=== PATIENT | male | born 1970 | race African-American/Black ===

== ENCOUNTER 2019-03-03 14:18 | Emergency (ER) | payer OTHER ==
--- NOTE | 2019-03-03 15:58 | ER Document Report ---
HPI - HPI Time Seen by Provider: 03/03/19 15:39 Pain Level: 4 Notes: 48-year-old male presents emergency room for evaluation of flulike symptoms, sore throat, nasal congestion, dry cough, body aches for the last 2 days. Patient did not get a flu shot this year. Worse with time, nothing makes better. He has tried TheraFlu without relief. Decreased eating but drinking without issues. Patient states he does have a history of hypertension, forgot to take his blood pressure medications today. denies chest pain,palpitations, shortness of breath, dyspnea, nausea, vomiting, diarrhea, abdominal pain, hematuria,blurred vision, double vision, loss of vision, speech changes, LH, dizziness, syncope, headaches, wheezing, , neck pain, weakness, bowel or bladder dysfunction, saddle anesthesia, numbness or tingling in bilateral upper or lower extremities equally, muscle paralysis, weakness in bilateral upper or lower extremities equally or rash. Past Medical History - General Information source: Patient - Social History Smoking Status: Never Smoker Frequency of alcohol use: None Drug Abuse: None Family History: Reviewed & Not Pertinent Patient has suicidal ideation: No Patient has homicidal ideation: No Vertical Provider Document - CONSTITUTIONAL Agree With Documented VS: Yes Exam Limitations: No Limitations General Appearance: WD/WN Notes: PHYSICAL EXAMINATION:reviewed vital signs by RN GENERAL: Well-appearing, well-nourished male in no acute distress. HEAD: Atraumatic, normocephalic. EYES: Pupils equal round and reactive to light, extraocular movements intact, sclera anicteric, conjunctiva are normal. Tears noted ENT: TM intact, noted effusion, no erythema bilaterally. Nares boggy bilaterally, oropharynx with erythema and without exudates. Moist mucous membranes. NECK: Normal range of motion, supple without lymphadenopathy LUNGS: Breath sounds clear to auscultation bilaterally and equal. No wheezes rales or rhonchi. No retractions HEART: Regular rate and rhythm without murmurs ABDOMEN: Soft, nontender, nondistended abdomen. No guarding, no rebound. No masses appreciated. Musculoskeletal: Normal range of motion, no pitting or edema. No cyanosis. NEUROLOGICAL: Cranial nerves grossly intact. Normal speech, normal gait exam for age. Normal sensory, motor, and reflex exams. PSYCH: Normal mood, normal affect. SKIN: Warm, Dry, normal turgor, no rashes or lesions noted Course - Re-evaluation Re-evalutation: 03/03/19 15:51 Afebrile slightly hypertensive though patient did not take his blood pressure medications today, asymptomatic, in no distress. Rapid flu, rapid strep Patient presents with cough, vomiting, diarrhea, and fever at home consistent with a diagnosis of influenza. Influenza testing is negative, but clinically appears to have flulike symptoms . patient is overall well in appearance, in no acute distress. Lung sounds clear. Able to tolerate oral intake without difficulty here in the emergency department. After risks and benefits conversat ion with the patient regarding the use of Tamiflu, they have elected to use supportive care without Tamiflu based on concerns about lack of efficacy as well as the side effect profile. At this time will discharge with return precautions and follow-up recommendations. Verbal discharge instructions given a the bedside and opportunity for questions given. Medication warnings reviewed. Patient is in agreement with this plan and has verbalized understanding of return precautions and the need for primary care follow-up in the next 24-72 hours. 03/03/19 17:58 - Vital Signs Vital signs: Temp Pulse Resp BP Pulse Ox 98.8 F 80 18 175/95 H 98 03/03/19 14:48 03/03/19 14:48 03/03/19 14:48 03/03/19 14:48 03/03/19 14:48 Discharge - Discharge Clinical Impression: Flu-like symptoms Condition: Stable Disposition: HOME, SELF-CARE Instructions: Acetaminophen, Influenza ([facility]) Additional Instructions: Take medication as prescribed. Increase oral hydration. Work note given. Wash hands frequently. Alternate between Tylenol and ibuprofen for fever and pain control. Return immediately for any new or worsening symptoms. Follow up with primary care provider, call tomorrow to make followup appointment. Prescriptions: Oseltamivir Phosphate [Tamiflu 75 mg Capsule] 75 mg PO BID #10 capsule Forms: Return to Work Referrals: HAN KING DO [NO LOCAL MD] - Follow up as needed
[2019-03-03 17:36] LABS: A TYPE INFLUENZA AG NEGATIVE (NEGATIVE); B INFLUENZA AG NEGATIVE (NEGATIVE)
[2019-03-03 18:22] VITALS: BP 158/94
== END 2019-03-03 18:22 | disposition home or self-care (01) ==
LOC: ER 14:18
DX: J02.9 Acute pharyngitis, unspecified (principal); R09.81 Nasal congestion; R05 Cough; M79.10 Myalgia, unspecified site; R11.10 Vomiting, unspecified
CPT/HCPCS: 87070; 87804; 87880; 99283

== ENCOUNTER 2019-09-08 21:03 | Emergency (ER) | payer OTHER ==
--- NOTE | 2019-09-08 21:27 | EKG REPORT ---
SEVERITY:- BORDERLINE ECG - SINUS RHYTHM BORDERLINE T ABNORMALITIES, INFERIOR LEADS : Confirmed by: Johnny Sue MD 08-Sep-2019 21:26:45
[2019-09-09 00:46] LABS: ABSOLUTE EOSINOPHILS # (AUTO) 0.3 10^3/uL (0.0-0.6); ABSOLUTE LYMPHOCYTES (AUTO) 1.3 10^3/uL (0.5-4.7); ABSOLUTE MONOCYTES (AUTO) 0.4 10^3/uL (0.1-1.4); ABSOLUTE NEUT (AUTO) 4.9 10^3/uL (1.7-8.2); BASOPHILS % (AUTO) 0.5 % (0-2); EOSINOPHILS % (AUTO) 3.9 % (0-6); HEMATOCRIT 44.4 % (37.9-51.0); LYMPHOCYTES % (AUTO) 18.1 % (13-45); MEAN CORPUSCULAR HEMOGLOBIN 30.6 pg (27.0-33.4); MEAN CORPUSCULAR HGB CONC 33.7 g/dL (32.0-36.0); MEAN CORPUSCULAR VOLUME 91 fl (80-97); MONOCYTES % (AUTO) 6.5 % (3-13); PLATELET COUNT 289 10^3/uL (150-450); TOTAL CELLS COUNTED % (AUTO) 100 %; WHITE BLOOD COUNT 6.9 10^3/uL (4.0-10.5)
[2019-09-09 01:03] LABS: ALBUMIN 4.7 g/dL (3.5-5.0); ALKALINE PHOSPHATASE 75 U/L (38-126); ANION GAP 9 (5-19); ASPARTATE AMINO TRANSFERASE 35 U/L (17-59); BILIRUBIN,TOTAL 0.6 mg/dL (0.2-1.3); BLOOD UREA NITROGEN 22 mg/dL (7-20); CALCIUM 9.5 mg/dL (8.4-10.2); CARBON DIOXIDE 31 mmol/L (22-30); CHLORIDE 100 mmol/L (98-107); CREATINE KINASE 560 U/L (55-170); GLUCOSE 114 mg/dL (75-110); POTASSIUM 3.5 mmol/L (3.6-5.0); TOTAL PROTEIN 8.9 g/dL (6.3-8.2)
[2019-09-09 01:13] LABS: CREATINE KINASE MB 1.51 ng/mL (<4.55)
[2019-09-09 01:17] LABS: TROPONIN I < 0.012 ng/mL
--- NOTE | 2019-09-09 01:19 | RADIOLOGY REPORT (SQ) ---
EXAM DESCRIPTION: X-RAY CHEST- One View CLINICAL HISTORY: Chest pain COMPARISON: None TECHNIQUE: Single view of the chest. FINDINGS: There are no discrete air space infiltrates, pneumothoraces or pleural effusions. The pulmonary vascularity is normal. The cardiomediastinal silhouette is normal in size. No suspicious lytic or blastic osseous lesions are identified. IMPRESSION: There are no acute lung parenchymal findings.
[2019-09-09] MEDS ORDERED: ACETAMINOPHEN 325 MG TABLET PO ONE (03:10)
[2019-09-09] MEDS ORDERED: NORMAL SALINE 1000 ML 1,000 ML IV ONE (03:14)
--- NOTE | 2019-09-09 03:15 | ER Document Report ---
ED General - General Chief Complaint: Chest Pain Stated Complaint: COUGH, FEELING FEVERISH, CHILLS, HEADACHE Time Seen by Provider: 09/09/19 02:38 Primary Care Provider: SUZANNA BURDICK [NO LOCAL MD] - Follow up as needed Notes: 48-year-old male with past medical history of hypertension presenting today with acute onset this morning of feeling warm, chills, cough. States he had an episode of chest pain as well which has since resolved. No recent travel. Denies any additional symptoms. Currently denies any chest pain at this time. TRAVEL OUTSIDE OF THE [place] IN LAST 30 DAYS: No - Related Data Allergies/Adverse Reactions: No Known Allergies Allergy (Unverified 03/03/19 15:42) Past Medical History - Social History Smoking Status: Never Smoker Family History: Reviewed & Not Pertinent Patient has homicidal ideation: No - Past Medical History Cardiac Medical History: Reports: Hx Hypertension Past Surgical History: Reports: Hx Orthopedic Surgery Review of Systems - Review of Systems Constitutional: See HPI EENT: No symptoms reported Cardiovascular: See HPI Respiratory: No symptoms reported Gastrointestinal: No symptoms reported Male Genitourinary: No symptoms reported Neurological/Psychological: No symptoms reported Physical Exam - Vital signs Vitals: Temp Pulse Resp BP Pulse Ox 99.6 F 96 17 163/122 H 96 09/08/19 21:25 09/08/19 21:25 09/08/19 21:25 09/08/19 21:25 09/08/19 21:25 Interpretation: Hypertensive. No: Bradycardic, Hypoxic, Tachypneic, Febrile - Notes Notes: Adult General: GENERAL: Alert, interacts well. No acute distress HEAD: Normocephalic, atraumatic EYES: Pupils equal, round and reactive to light. Extraocular movements intact. ENT: Airway patent. Nares patent. NECK: Full range of motion. Supple. Trachea midline. No lymphadenopathy. LUNGS: Clear to auscultation bilaterally, no wheezes, rales, or rhonchi. No respiratory distress. Nontender chest wall. HEART: Regular rate and rhythm. No murmurs, rubs or gallops. ABDOMEN: Soft, nontender. Nondistended. (-) [place] sign. Bowel sounds present in all 4 quadrants. No rebound, guarding or masses. GENITOURINARY: Deferred EXTREMITIES: Moves all 4 extremities spontaneously. No edema, normal radial and dorsal pedis pulses bilaterally. No cyanosis. BACK: No cervical, thoracic, lumbar midline tenderness. No saddle anesthesia, normal distal neurovascular exam. Moves all extremities with full range of motion. NEUROLOGICAL: Alert and oriented x3. Normal speech. Strength 5/ 5 in all extremities. PSYCH: Normal affect, normal mood. SKIN: Warm, dry, normal turgor. No rashes or lesions noted. Course - Re-evaluation Re-evalutation: 09/09/19 05:15 Patient Continues to deny chest pain. EKG shows no st segment elevations or de pressions. 2 troponins are negative. DOes state has a mild headache States feels better after fluid and tylenol. I did discuss patient elevated creatine kinase and creatinine with him. He states he has had an elevated creatinine for some time. Does not see a nephroloist. CXR shows no acute findings. I recommend patient schedule a follow up with his primary care provider in regards to these labs. Patient acknowledges and verbalizes understanding of instructions and plan. All questions answered. As patient symptoms have improved, and he continues to deny being in chest pain, I will discharge the patient. Return precautions discussed to include worsening symptoms or the development of new symptoms. All quesitons answered. - Vital Signs Vital signs: Temp Pulse Resp BP Pulse Ox 98.0 F 65 17 169/115 H 95 09/09/19 05:39 09/09/19 05:39 09/09/19 05:39 09/09/19 05:39 09/09/19 05:39 - Laboratory Result Diagrams: 09/09/19 00:15 09/09/19 00:15 Laboratory results interpreted by me: 09/09/19 00:15 Potassium 3.5 L Carbon Dioxide 31 H BUN 22 H Creatinine 1.59 H Est GFR ( Amer) 57 L Est GFR (MDRD) Non-Af 47 L Glucose 114 H Creatine Kinase 560 H Total Protein 8.9 H Discharge - Discharge Clinical Impression: Elevated creatine kinase, Elevated serum creatinine, Chills (without fever) Hypertension Qualifiers: Hypertension type: unspecified Qualified Code(s): I10 - Essential (primary) hypertension Condition: Stable Disposition: HOME, SELF-CARE Additional Instructions: Please follow-up with your primary care provider for your high blood pressure and elevated creatinine. Please return to the emergency department if you have worsening symptoms or development of new symptoms. Referrals: [facility] [NO LOCAL MD] - Follow up as needed
[2019-09-09 05:40] VITALS: BP 169/115
--- NOTE | 2019-09-09 06:40 | EKG REPORT ---
SEVERITY:- NORMAL ECG - SINUS RHYTHM : Confirmed by: Johnny Sue MD 09-Sep-2019 06:39:48
== END 2019-09-09 05:46 | disposition home or self-care (01) ==
LOC: ER 21:03
DX: R68.83 Chills (without fever) (principal); I10 Essential (primary) hypertension; R79.89 Other specified abnormal findings of blood chemistry; R05 Cough; R51 Headache
CPT/HCPCS: 93005 ×2; 99284; 96360; 36415; 82553; 82550; 85025; 80053; 84484; 71045; 93010 ×2; J7030